=== PATIENT | female | born 1950 | race Caucasian/White ===

== ENCOUNTER 2016-10-04 00:01 | Outpatient (POV) | END 2016-10-04 00:02 | LOC: OUTPT 00:01 | PROVIDERS: ATTEND Otolaryngology | DX: R42 Dizziness and giddiness (principal) | CPT/HCPCS: 92557; 92567 ==

== ENCOUNTER 2016-10-09 10:54 | Outpatient (CLI) ==
[2016-10-09 13:47] LABS: FLU INTERNAL QC INTERNAL QC VALID; RAPID FLU A NEGATIVE (NEGATIVE); RAPID FLU B NEGATIVE (NEGATIVE)
== END 2016-10-09 10:55 | disposition home or self-care (01) ==
LOC: LAB 10:54
PROVIDERS: ATTEND Nurse Practitioner Family
DX: R50.9 Fever, unspecified (principal); J02.9 Acute pharyngitis, unspecified
CPT/HCPCS: 87804

== ENCOUNTER 2017-08-28 10:48 | Outpatient (CLI) | payer OTHER | END 2017-08-28 10:49 | disposition home or self-care (01) | LOC: RHC-LAB 10:48 | PROVIDERS: ATTEND Emergency Medicine | DX: J06.9 Acute upper respiratory infection, unspecified (principal); R68.89 Other general symptoms and signs | CPT/HCPCS: 87651; 87804 ==